=== PATIENT | male | born 1960 | race African-American/Black ===

== ENCOUNTER 2017-06-27 14:48 | Emergency (ER) | payer OTHER ==
[~2017-06-27] VITALS: Ht 170.2 cm; Wt 68.0 kg
[~2017-06-27 14:48] MED LIST: ASPI81TA82 PO; ATOR10 PO; LEVE500 PO; LISI-357 PO
[2017-06-27 14:52] VITALS: BP 170/89; PULSE 83; RESP 16; TEMP 98.9; O2SAT 95
[2017-06-27] MEDS ORDERED: LISI10TA3 PO (15:59)
[2017-06-27] MEDS ORDERED: LEVE500T8 PO (15:59)
[2017-06-27] MEDS ORDERED: SODIUM CHLORIDE 0.9% FLUSH 10 ML FLUSH IVF PRN (16:30)
[2017-06-27] MEDS ORDERED: SODIUM CHLOR 0.9% 1000 ML INJ 1,000 ML IV ONE (16:30)
--- NOTE | 2017-06-27 16:50 | PD ---
HPI Chief Complaint: Cold / Flu Symptoms Time Seen by Provider: 15:52 Travel History International Travel<30 days: No Contact w/Intl Traveler<30days: No Traveled to known affect area: No History of Present Illness HPI Patient is a 56-year-old male with history of chronic back pain, hypertension, hyperlipidemia, seizure disorder, presents to emergency room with multiple complaints. Patient reports that for the past 2 weeks, he has been having body aches, reports that he has been feeling short of breath, reports diffuse pain all over his body. Patient reports that he thinks everything started after he had a flu shot last month, reports that he has not been feeling well since then. Patient reports that overall, he has been feeling weak, reports that he has been feeling dizzy. Reports severe pain all over his body, reports that he normally takes Percocet 10 mg for this but his primary care doctor will not refill his scripts. Reports that he did see another doctor but is unable to followup with them for a script. Patient denies any fevers or chills, she reports generalized weakness and pain. Reports that his chest wall is hurting him along with his whole body including his back. PFSH Past Medical History Autoimmune Disease: No Blood Disorders: No Anxiety: No Depression: Yes Cancer: No Cardiac Catheterization: No Cardiovascular Problems: Yes Cerebrovascular Accident: Yes (CVA 2012) Diabetes: No Diminished Hearing: No Endocrine: No Gastrointestinal Disorders: No Genitourinary: No Herniated Disk: Yes Hypertension: Yes Immune Disorder: No Implanted Vascular Access Dvce: No Musculoskeletal: Yes Neurologic: No Psychiatric: Yes Reproductive: No Respiratory: No Myocardial Infarction: Yes Seizures: Yes Sickle Cell Disease: No Thyroid Disease: No Tetanus Vaccination: > 5 Years Past Surgical History AICD: No Arteriovenous Shunt: No Cardiac Surgery: No Endocrine Surgery: No Insulin Pump: No Joint Replacement: No Pacemaker: No Other Surgery: Yes (liver biopsy) Family History Family Myocardial Infarction: Yes (brother, sister ) Social History Alcohol Use: Yes (OCC.) Tobacco Use: Yes (1PPD CIGARETTS) Substance Use: No (COCAINE PT DENIES) Allergies-Medications (Allergen,Severity, Reaction): Coded Allergies: acetaminophen (Unverified Allergy, Severe, SWELLING, 06/27/17) propoxyphene (Unverified Allergy, Severe, SWELLING, 06/27/17) Reported Meds & Prescriptions Reported Meds & Active Scripts Active Reported Lisinopril 10 Mg Tab 10 Mg PO DAILY Levetiracetam 500 Mg Tab 500 Mg PO BID Review of Systems Except as stated in HPI: all other systems reviewed are Neg General / Constitutional: No: Fever Eyes: No: Visual changes HENT: No: Headaches Cardiovascular: No: Chest Pain or Discomfort Respiratory: Positive: Shortness of Breath Gastrointestinal: No: Abdominal Pain Genitourinary: No: Dysuria Musculoskeletal: Positive: Myalgias, No: Pain Skin: No Rash Neurologic: Positive: Weakness, Dizziness Psychiatric: No: Depression Endocrine: No: Polydipsia Hematologic/Lymphatic: No: Easy Bruising Physical Exam Narrative GENERAL: Mild distress SKIN: Focused skin assessment warm/dry. HEAD: Atraumatic. Normocephalic. EYES: Pupils equal and round. No scleral icterus. No injection or drainage. ENT: No nasal bleeding or discharge. Mucous membranes pink and moist. NECK: Trachea midline. No JVD. CARDIOVASCULAR: Regular rate and rhythm. No murmur appreciated. RESPIRATORY: No accessory muscle use. Clear to auscultation. Breath sounds equal bilaterally. GASTROINTESTINAL: Abdomen soft, non-tender, nondistended. Hepatic and splenic margins not palpable. MUSCULOSKELETAL: No obvious deformities. No clubbing. No cyanosis. No edema. NEUROLOGICAL: Awake and alert. No obvious cranial nerve deficits. Motor grossly within normal limits. Normal speech. PSYCHIATRIC: Appropriate mood and affect; insight and judgment normal. Data Data Last Documented VS Vital Signs Date Time Temp Pulse Resp B/P (MAP) Pulse Ox O2 Delivery O2 Flow Rate FiO2 06/27/17 14:52 98.9 83 16 170/89 (116) 95 Orders Orders Electrocardiogram (06/27/17 ) Electrocardiogram (06/27/17 15:52) B-Type Natriuretic Peptide (06/27/17 16:21) Ckmb (Isoenzyme) Profile (06/27/17 16:21) Complete Blood Count With Diff (06/27/17 16:21) Comprehensive Metabolic Panel (06/27/17 16:21) D-Dimer (06/27/17 16:21) Magnesium (Mg) (06/27/17 16:21) Prothrombin Time / Inr (Pt) (06/27/17 16:21) Act Partial Throm Time (Ptt) (06/27/17 16:21) Troponin I (06/27/17 16:21) Chest, Single Ap (06/27/17 16:21) Ecg Monitoring (06/27/17 16:21) Iv Access Insert/Monitor (06/27/17 16:21) Oximetry (06/27/17 16:21) Sodium Chloride 0.9% Flush (Ns Flush) (06/27/17 16:30) Sodium Chlor 0.9% 1000 Ml Inj (Ns 1000 M (06/27/17 16:30) MDM Medical Decision Making Medical Screen Exam Complete: Yes Emergency Medical Condition: Yes Medical Record Reviewed: Yes Interpretation(s) EKG at 1606: NSR at 71bpm, qt/qtc: 416/438, rbbb, t wave inversion, ekg similar when compared to EKG from 05/31/15 Vital Signs Date Time Temp Pulse Resp B/P (MAP) Pulse Ox O2 Delivery O2 Flow Rate FiO2 06/27/17 14:52 98.9 83 16 170/89 (116) 95 Differential Diagnosis Differential includes ACS, arrhythmia, PE, electrolyte abnormality, viral syndrome Narrative Course 56-year-old male who presents to emergency room with multiple complaints. Patient was placed on a hoop driving machine operator helper upon arrival to the emergency room. EKG was obtained which showed no acute ST-T wave changes. Plan to obtain blood work including d.dimer, will check x-ray of the chest. Will check for influenza , will give IV fluids and monitor on hoop driving machine operator helper. Shweta Agudelo DO Jun 27, 2017 16:50
--- NOTE | 2017-06-27 16:59 | RADRPT ---
EXAM DATE/TIME: 06/27/2017 16:38 [facility] COMPARISON: CHEST SINGLE AP, May 30, 2015, 20:18. INDICATIONS : Chest pain and shortness of breath. MEDICAL HISTORY : Hypertension. Myocardial infarction. Asthma. SURGICAL HISTORY : None. ENCOUNTER: Initial ACUITY: 3 days PAIN SCORE: 10/10 LOCATION: Bilateral chest FINDINGS: A single view of the chest demonstrates the lungs to be symmetrically aerated without evidence of mas s, infiltrate or effusion. The cardiomediastinal contours are unremarkable. Osseous structures are intact. CONCLUSION: No acute disease. Jarred Calabrese MD on June 27, 2017 at 16:55 Board Certified Radiologist. This report was verified electronically.
[2017-06-27 17:22] LABS: AUTOMATED NEUTROPHIL # 2.3 TH/MM3 (1.8-7.7); BASOPHIL # 0.1 TH/MM3 (0-0.2); EOSINOPHIL # 0.4 TH/MM3 (0-0.4); EOSINOPHIL % 6.7 % (0.0-4.0); HEMOGLOBIN 15.4 GM/DL (13.0-17.0); LYMPH % 45.7 % (9.0-44.0); LYMPHOCYTE # 2.7 TH/MM3 (1.0-4.8); MEAN CELL VOLUME 94.9 FL (80.0-100.0); MEAN CORPUSCULAR HEMOGLOBIN 31.7 PG (27.0-34.0); MEAN CORPUSCULAR HGB CONC 33.4 % (32.0-36.0); MEAN PLATELET VOLUME 9.8 FL (7.0-11.0); MONO % 7.3 % (0.0-8.0); MONOCYTE # 0.4 TH/MM3 (0-0.9); NEUT % 39.3 % (16.0-70.0); PLATELET COUNT 226 TH/MM3 (150-450); RED BLOOD COUNT 4.85 MIL/MM3 (4.50-5.90); RED CELL DISTRIBUTION WIDTH 14.4 % (11.6-17.2); WHITE BLOOD COUNT 5.9 TH/MM3 (4.0-11.0)
[2017-06-27 17:23] LABS: ALT (GPT) 28 U/L (12-78)
[2017-06-27 17:43] LABS: ALBUMIN 3.7 GM/DL (3.4-5.0); ALKALINE PHOSPHATASE 96 U/L (45-117); AST (GOT) 26 U/L (15-37); BICARBONATE 28.4 MEQ/L (21.0-32.0); BLOOD UREA NITROGEN 16 MG/DL (7-18); CHLORIDE 104 MEQ/L (98-107); CREATININE 1.16 MG/DL (0.60-1.30); GLOMERULAR FILTRATION RATE 78 ML/MIN (>89); GLUCOSE,RANDOM 89 MG/DL (74-106); SODIUM (NA) 137 MEQ/L (136-145); TOTAL BILIRUBIN ADULT 0.3 MG/DL (0.2-1.0); TOTAL PROTEIN 7.3 GM/DL (6.4-8.2); TROPONIN I LESS THAN 0.02 NG/ML (0.02-0.05)
[2017-06-27 17:58] LABS: PROTHROMBIN TIME - PATIENT 10.7 SEC (9.8-11.6)
--- NOTE | 2017-06-27 17:58 | PD ---
Data Data Last Documented VS Vital Signs Date Time Temp Pulse Resp B/P (MAP) Pulse Ox O2 Delivery O2 Flow Rate FiO2 06/27/17 14:52 98.9 83 16 170/89 (116) 95 Orders Orders Electrocardiogram (06/27/17 ) Electrocardiogram (06/27/17 15:52) B-Type Natriuretic Peptide (06/27/17 16:21) Ckmb (Isoenzyme) Profile (06/27/17 16:21) Complete Blood Count With Diff (06/27/17 16:21) Comprehensive Metabolic Panel (06/27/17 16:21) D-Dimer (06/27/17 16:21) Magnesium (Mg) (06/27/17 16:21) Prothrombin Time / Inr (Pt) (06/27/17 16:21) Act Partial Throm Time (Ptt) (06/27/17 16:21) Troponin I (06/27/17 16:21) Chest, Single Ap (06/27/17 16:21) Ecg Monitoring (06/27/17 16:21) Iv Access Insert/Monitor (06/27/17 16:21) Oximetry (06/27/17 16:21) Sodium Chloride 0.9% Flush (Ns Flush) (06/27/17 16:30) Sodium Chlor 0.9% 1000 Ml Inj (Ns 1000 M (06/27/17 16:30) Influenzae A/B Antigen (06/27/17 16:49) CKMB (06/27/17 16:40) CKMB% (06/27/17 16:40) Labs Laboratory Tests Test 06/27/17 16:40 White Blood Count 5.9 TH/MM3 Red Blood Count 4.85 MIL/MM3 Hemoglobin 15.4 GM/DL Hematocrit 46.0 % Mean Corpuscular Volume 94.9 FL Mean Corpuscular Hemoglobin 31.7 PG Mean Corpuscular Hemoglobin Concent 33.4 % Red Cell Distribution Width 14.4 % Platelet Count 226 TH/MM3 Mean Platelet Volume 9.8 FL Neutrophils (%) (Auto) 39.3 % Lymphocytes (%) (Auto) 45.7 % Monocytes (%) (Auto) 7.3 % Eosinophils (%) (Auto) 6.7 % Basophils (%) (Auto) 1.0 % Neutrophils # (Auto) 2.3 TH/MM3 Lymphocytes # (Auto) 2.7 TH/MM3 Monocytes # (Auto) 0.4 TH/MM3 Eosinophils # (Auto) 0.4 TH/MM3 Basophils # (Auto) 0.1 TH/MM3 CBC Comment DIFF FINAL Differential Comment Prothrombin Time 10.7 SEC Prothromb Time International Ratio 1.0 RATIO Activated Partial Thromboplast Time 27.3 SEC D-Dimer Quantitative (PE/DVT) LESS THAN 0.19 MG/L FEU Blood Urea Nitrogen 16 MG/DL Creatinine 1.16 MG/DL Random Glucose 89 MG/DL Total Protein 7.3 GM/DL Albumin 3.7 GM/DL Calcium Level 9.0 MG/DL Magnesium Level 2.0 MG/DL Alkaline Phosphatase 96 U/L Aspartate Amino Transf (AST/SGOT) 26 U/L Alanine Aminotransferase (ALT/SGPT) 28 U/L Total Bilirubin 0.3 MG/DL Sodium Level 137 MEQ/L Potassium Level 4.2 MEQ/L Chloride Level 104 MEQ/L Carbon Dioxide Level 28.4 MEQ/L Anion Gap 5 MEQ/L Estimat Glomerular Filtration Rate 78 ML/MIN Total Creatine Kinase 148 U/L Creatine Kinase MB 1.7 NG/ML Troponin I LESS THAN 0.02 NG/ML B-Type Natriuretic Peptide 31 PG/ML MDM Supervised Visit with VICENTE: Yes Narrative Course 56-year-old man, presents with generalized symptoms including body aches, shortness of breath, and feeling poorly. Out of pain medications. Initially seen by Dr. Agudelo, signed out to me to follow-up on the results of diagnostic testing. Past medical history includes: Hypertension CVA Impression Studies show: CBC is unremarkable. CMP is unremarkable. Troponin negative D-dimer negative BNP negative X-ray unremarkable. FINAL: Follow-up with your primary doctor. Diagnosis Primary Impression: Chronic back pain Additional Impression: Chest pain Additional Instruction: Follow-up with your primary doctor in the next 2-4 days. Return to the emergency department for any new or worsening symptoms. Disposition: 01 DISCHARGE HOME Condition: Stable Keaton Villegas MD Jun 27, 2017 17:58
[2017-06-27 18:02] LABS: D-DIMER LESS THAN 0.19 MG/L FEU (0.00-0.50)
--- NOTE | 2017-06-28 13:36 | EKG ---
Date Performed: 06/27/2017 Time Performed: 16:06:34 PTAGE: 56 years EKG: Sinus rhythm INDETERMINATE AXIS RIGHT BUNDLE BRANCH BLOCK MODERATE T-WAVE ABNORMALITY, CONSIDER LATERAL ISCHEMIA MODERATE T-WAVE ABNORMALITY, CONSIDER INFERIOR ISCHEMIA ABNORMAL ECG PREVIOUS TRACING : 05/31/2015 02.14 DOCTOR: Fran Stephenson Interpretating Date/Time 06/28/2017 13:35:37
== END 2017-06-27 19:10 | disposition home or self-care (01) ==
LOC: NEPD 14:48
DX: M54.9 Dorsalgia, unspecified (principal); G89.29 Other chronic pain; R07.9 Chest pain, unspecified; R06.02 Shortness of breath; R53.1 Weakness; R42 Dizziness and giddiness; M79.1 Myalgia; R94.31 Abnormal electrocardiogram [ECG] [EKG]; I10 Essential (primary) hypertension; I25.2 Old myocardial infarction; F17.200 Nicotine dependence, unspecified, uncomplicated; Z86.59 Personal history of other mental and behavioral disorders; Z86.79 Personal history of other diseases of the circulatory system; Z87.39 Personal history of other diseases of the musculoskeletal system and connective tissue; Z86.69 Personal history of other diseases of the nervous system and sense organs
CPT/HCPCS: 71010; 80053; 82550; 82552; 83735; 83880; 84484; 85025; 85379; 85610; 85730; 87804; 93005; 96360; 99285; J7030